=== PATIENT | male | born 1975 | race Caucasian/White ===

== ENCOUNTER → 2022-10-10 13:44 | Outpatient (BNVA) | payer OTHER, SELFPAY | PROVIDERS: PCP Family Medicine; Referring Provider Family Medicine; Visit Provider Physician Assistant | DX: M48.02 Spinal stenosis, cervical region (principal); M41.54 Other secondary scoliosis, thoracic region; M47.896 Other spondylosis, lumbar region | CPT/HCPCS: 72050; 72070; 72110 ==

== ENCOUNTER 2022-10-15 13:51 | Emergency (ER) | payer OTHER, SELFPAY ==
[2022-10-15 14:00] VITALS: BP 117/73; PULSE 106; RESP 18; TEMP 36.4; O2SAT 98
--- NOTE | 2022-10-15 14:05 | ECG_ITS ---
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 Measurements Intervals [place] Rate: 103 P: 136 OK: 142 QRS: 110 QRSD: 93 T: 59 QT: 304 QTc: 399 Interpretive Statements SINUS TACHYCARDIA ARM LEADS REVERSED [INVERTED P AND QRS IN I] No previous ECG available for comparison Electronically Signed On 10-15-2022 16:57:14 CDT by Khari Lau M.D. [email or web address] hospitalCemaphore Systemstrinity health system twin city medical centerYouku/[email or web address]/[id number]
== END 2022-10-15 16:05 | disposition left against medical advice (07) ==
LOC: ER 13:57
PROVIDERS: Emergency Provider Family Medicine; PCP Family Medicine
DX: Z53.21 Procedure and treatment not carried out due to patient leaving prior to being seen by health care provider (principal)
CPT/HCPCS: 93005

== ENCOUNTER → 2022-11-16 18:19 | Outpatient (BNVA) | payer OTHER, SELFPAY | PROVIDERS: PCP Family Medicine; Visit Provider Registered Nurse Neonatal Intensive Care | DX: R10.9 Unspecified abdominal pain (principal); R39.9 Unspecified symptoms and signs involving the genitourinary system | CPT/HCPCS: 81000; 87086 ==

== ENCOUNTER 2022-11-17 12:26 | Emergency (ER) | payer OTHER, SELFPAY ==
[2022-11-17 12:31] VITALS: BP 140/80; PULSE 117; RESP 18; TEMP 36.6; O2SAT 96; BMI 30.7
--- NOTE | 2022-11-17 12:44 | CTR_ITS ---
PROCEDURE INFORMATION: Exam: CT Abdomen And Pelvis With Contrast Exam date and time: 11/17/2022 1:34 PM Age: 47 years old Clinical indication: Other: Diarrhea; Abdominal pain; Periumbilical; Prior surgery; Surgery date: 6+ months; Surgery type: Hernia; Additional info: Periumbilical pain, diarrhea TECHNIQUE: Imaging protocol: Computed tomography of the abdomen and pelvis with contrast. Radiation optimization: All CT scans at this facility use at least one of these dose optimization techniques: automated exposure control; mA and/or kV adjustment per patient size (includes targeted exams where dose is matched to clinical indication); or iterative reconstruction. Contrast material: OMNI 350; Contrast volume: 100 ml; Contrast route: INTRAVENOUS (IV); REPORTING DATA: Count of CT and Cardiac NM exams in prior 12 months: This patient has received 0 known CTs and 0 known cardiac nuclear medicine studies in the 12 months prior to the current study. COMPARISON: CR XR lumbar spine min 4V [id number] 10/10/2022 1:44 PM RADIATION DOSE METRICS: Total DLP (mGy-cm): 749.73 FINDINGS: Liver: Scattered small cysts in the liver measuring up to 1.3 cm in the left lobe. Gallbladder and bile ducts: Contracted gallbladder. No ductal dilation. Pancreas: Normal. No ductal dilation. Spleen: Normal. No splenomegaly. Adrenal glands: Normal. No mass. Kidneys and ureters: Normal. No hydronephrosis. Stomach and bowel: Distended fluid-filled stomach. No obstruction. No mucosal thickening. There are also fluid-filled loops of small bowel and colon. Appendix: No evidence of appendicitis. Intraperitoneal space: Unremarkable. No free air. No significant fluid collection. Vasculature: Unremarkable. No abdominal aortic aneurysm. Lymph nodes: Unremarkable. No enlarged lymph nodes. Urinary bladder: Unremarkable as visualized. Reproductive: Unremarkable as visualized. Bones/joints: No acute fracture. Intervertebral disc spacers at L4-L5 and L5-S1. Soft tissues: Unremarkable. CT/CT abdomen pelvis w con* [id number] IMPRESSION: Distended fluid-filled stomach. There are also fluid-filled loops of small bowel and colon which while nonspecific likely reflects a gastroenteritis.
--- NOTE | 2022-11-17 12:46 | ED_ITS ---
HPI - Nausea/Vomiting/Diarrhea General: Chief complaint: Nausea/Vomiting/Diarrhea Stated complaint: diarhea, lower back pain, stomach pain Time Seen by Provider: 11/17/22 12:34 Source: patient Mode of arrival: ambulatory Limitations: no limitations History of Present Illness: 47-year-old male presents to the ER today for periumbilical abdominal pain and nausea and diarrhea for the last 4 days. Patient reports this started on . He reports the pain has continued. This is a sharp stabbing pain that doubles him over. Patient reports it is intermittent but lasts for minutes at a time. He reports he is also been burping up bile like material. He reports his stools are bile and water. Denies any bleeding. Denies any fever or chills. Patient reports decreased appetite due to the nausea. Patient reports the pain does not radiate anywhere at this time. Denies any known sick contacts. Patient reports has been trying to do Pedialyte to stay hydrated. No other symptoms at this time. Review of Systems General: Reports: 10 or more systems reviewed and unremarkable except in HPI and below PFSH ED PFSH: Medical History Afib Chronic back pain History of skin cancer Hypertension Low testosterone Overactive bladder Scoliosis Spinal stenosis Tachycardia Surgical History History of cardiac radiofrequency ablation History of spinal surgery L3-L4, L4-L5, L5-S1 fused together, 2008 S/P hernia surgery Family History Family/Other Cancer several members on both sides Mother Cancer malignant melanoma x2 Other Alzheimer disease CAD (coronary artery disease) Heart disease Hypertension Lung disease Stroke Denies family history of Clotting disorder Dementia Hyperlipidemia Psychiatric illness Chronic kidney disease (CKD) Anesthesia complication Bleeding disorder Social History Smoking and tobacco status: current every day smoker cigarettes Alcohol intake: current Alcohol intake frequency: holidays/special occasions only Substance/Drug Use: never Lives independently: Yes Marital status: Number of children: 3 Current occupational status: employed Current occupation: Insurance realty maintenence Special alejandra needs: No Agree to transfusion: Yes Physical Exam Const: COMMON NORMALS: no acute distress, average body habitus, patient oriented x3, no limitations, healthy appearing, alert and well nourished HENMT: COMMON NORMALS: normocephalic, atraumatic, external ears normal, Normal external nose present and moist oral mucous membranes HEAD & SCALP: normocephalic and atraumatic NOSE: Normal external nose present EXTERNAL EAR: Yes external ears normal Eye: COMMON NORMALS: conjunctivae normal CONJUNCTIVA: Yes conjunctivae normal Lymph: LYMPHATIC: no lymphadenopathy noted Resp: COMMON NORMALS: normal respiratory effort, No retractions and clear to auscultation bilaterally AUSCULTATION: clear to auscultation bilaterally Cardio: COMMON NORMALS: regular rhythm RATE: tachycardic RHYTHM: regular rhythm GI: OTHER: Has hyperactive bowel sounds in the right lower and left lower quadrants. He has periumbilical tenderness and right lower quadrant tenderness to palpation. Nondistended. Extremity: COMMON NORMALS: normal to inspection, full ROM and no pedal edema Neuro: COMMON NORMALS: patient oriented x3 SENSORIUM/ORIENTATION: Yes alert Psych: COMMON NORMALS: mental status grossly normal, Normal thought process present and cooperative THOUGHT PROCESS: Normal thought process present Skin: COMMON NORMALS: no rashes or lesions noted and no wounds GENERAL SKIN EXAM: no rashes or lesions noted Course ED course: Patient presents for 4 days of nausea and diarrhea along with periumbilical abdominal pain. Given history of symptoms, we will go ahead and get imaging along with labs done. I suspect possible viral gastroenteritis however we will rule out all surgical causes. Vital Signs: Vital signs: Vital Signs Temperature 97.8 F 11/17/22 12:31 Pulse Rate 76 11/17/22 14:04 Respiratory Rate 17 11/17/22 14:04 Blood Pressure 116/71 11/17/22 14:04 Pulse Oximetry 97 11/17/22 14:04 Oxygen Delivery Me thod Room Air 11/17/22 14:04 MDM - Nausea/Vomiting/Diarrhea Medical Decision Making Lab work is unremarkable other than a slightly bumped white count. CT abdomen pelvis indicates fluid-filled bowel loops and abdomen suggestive of gastroenteritis. This is classic for patient's symptoms. Discussed findings with patient. We will send him home with Jennifer and recommended a brat diet. Avoid antidiarrheal medications. Follow-up with PCP in 3 to 5 days if no improvement. Return to the ER with any new or worsening symptoms. Patient verbalized understanding and was in agreement with the treatment plan. Lab Data 11/17/22 12:44 11/17/22 12:44 Radiology Impressions Abdomen/Pelvis CT 11/17/22 12:44 IMPRESSION: Distended fluid-filled stomach. There are also fluid-filled loops of small bowel and colon which while nonspecific likely reflects a gastroenteritis. Laboratory Results WBC 10.5 10^3/uL (4.0-10.0) H 11/17/22 12:44 RBC 5.56 10^6/uL (4.1-5.3) H 11/17/22 12:44 Hgb 16.2 g/dL (11.7-16.6) 11/17/22 12:44 Hct 50.0 % (42.0-52.0) 11/17/22 12:44 MCV 89.9 fl (80-94) 11/17/22 12:44 MCH 29.1 pg (28.0-34.0) 11/17/22 12:44 MCHC 32.4 g/dL (30.0-36.0) 11/17/22 12:44 RDW 14.6 % (12.1-15.1) 11/17/22 12:44 Plt Count 325 10^3/cmm (130-400) 11/17/22 12:44 MPV 11.7 fL (7.4-10.4) H 11/17/22 12:44 Neut % (Auto) 75.7 % 11/17/22 12:44 Lymph % (Auto) 16.0 % 11/17/22 12:44 [place] % (Auto) 5.9 % 11/17/22 12:44 Eos % (Auto) 1.6 % 11/17/22 12:44 Baso % (Auto) 0.3 % 11/17/22 12:44 Neut # (Auto) 7.98 10^3/uL (1.8-7.7) H 11/17/22 12:44 Lymph # (Auto) 1.7 10^3/uL (0.8-4.8) 11/17/22 12:44 [place] # (Auto) 0.6 10^3/uL (0.2-0.9) 11/17/22 12:44 Eos # (Auto) 0.2 10^3/uL (0.0-0.8) 11/17/22 12:44 Baso # (Auto) 0.0 10^3/uL (0.0-0.1) 11/17/22 12:44 Nucleated RBC % (auto) 0 % 11/17/22 12:44 Nucleated RBCs # 0.0 /100WBC 11/17/22 12:44 Sodium 140 mmol/L (136-145) 11/17/22 12:44 Potassium 4.8 mmol/L (3.5-5.1) 11/17/22 12:44 Chloride 105 mmol/L (98-107) 11/17/22 12:44 Carbon Dioxide 26 mmol/L (22-29) 11/17/22 12:44 Anion Gap 13.8 (5-19) 11/17/22 12:44 BUN 19 mg/dL (6-20) 11/17/22 12:44 Creatinine 1.1 mg/dL (0.7-1.2) 11/17/22 12:44 GFR Calculation 72.4 mL/min (90-130) L 11/17/22 12:44 Glucose 104 mg/dL (65-115) 11/17/22 12:44 Calculated Osmolality 293 mOsm/kg (285-295) 11/17/22 12:44 Calcium 9.6 mg/dL (8.5-10.5) 11/17/22 12:44 Total Bilirubin 0.3 mg/dL (0.15-1.2) 11/17/22 12:44 AST 21 U/L (0-40) 11/17/22 12:44 ALT 15 U/L (0-41) 11/17/22 12:44 Alkaline Phosphatase 80 U/L (40-130) 11/17/22 12:44 Total Protein 8.0 g/dL (6.6-8.7) 11/17/22 12:44 Albumin 4.9 g/dL (3.5-5.2) 11/17/22 12:44 Globulin 3.1 g/dL (1.3-4.6) 11/17/22 12:44 Lipase 53 U/L (13-60) 11/17/22 12:44 Critical Care Time Critical Care Time: Critical Care Time: No Discharge Plan Discharge Patient Disposition: Home Clinical Impression: Gastroenteritis Condition: Stable Prescriptions: New ondansetron HCl 4 mg tablet 4 mg PO Q8H PRN (Reason: nausea and vomiting) 4 Days Qty: 12 0RF No Action testosterone cypionate 200 mg/mL oil 150 mg SUBCUT Q7D Qty: 10 3RF prednisone 20 mg tablet 20 mg PO DAILY Qty: 15 0RF Rx Instructions: 60mg x 3 days 40mg x 2 days 20mg x 2 days tamsulosin [Flomax] 0.4 mg capsule 0.4 mg PO DAILY Qty: 60 0RF anastrozole 1 mg tablet 1 mg PO .weekly Qty: 30 0RF Eliquis 5 mg tablet 5 mg PO BID Qty: 180 1RF chlorzoxazone 500 mg tablet 500 mg PO Q8H PRN (Reason: chronic back pain) Qty: 270 1RF metoprolol tartrate 25 mg tablet 25 mg PO BID Qty: 180 1RF pantoprazole 40 mg tablet,delayed release (DR/EC) 40 mg PO DAILY Qty: 90 1RF oxycodone 10 mg tablet 10 mg PO Q8H PRN (Reason: pain) 30 Days Qty: 90 0RF Discharge Orders: Discharge ED (Routine); Ordered 11/17/22 Ordered By: Mari Barnes Referrals: Michi Morrow MD [Primary Care Provider] - Discharge Diet: Advance as tolerated Discharge Activity: Resume usual activity Patient Instructions: Opioid Safety, Pain Management Activity Restrictions/Additional Instructions: Take Zofran as needed for nausea. Avoid taking antidiarrheal medication. Continue to push fluids and advance solid diet as tolerated. Follow-up with PCP in 3 to 5 days if no improvement. Return to the ER if new or worsening symptoms. Coding Level of Care Code ED Boiler Room Operator for Diana Alvarez
[2022-11-17 13:00] LABS: Basophils % 0.3 %; Eosinophils # 0.2 10^3/uL (0.0-0.8); Eosinophils % 1.6 %; Hemoglobin 16.2 g/dL (11.7-16.6); Lymphocytes # 1.7 10^3/uL (0.8-4.8); Mean Corpuscular HGB Conc 32.4 g/dL (30.0-36.0); Mean Corpuscular Hemoglobin 29.1 pg (28.0-34.0); Mean Corpuscular Volume 89.9 fl (80-94); Mean Platelet Volume 11.7 fL (7.4-10.4); Monocytes # 0.6 10^3/uL (0.2-0.9); Monocytes % 5.9 %; Neutrophils # 7.98 10^3/uL (1.8-7.7); Neutrophils % 75.7 %; Nucleated Red Blood Cells % 0 %; Platelet Count 325 10^3/cmm (130-400); Red Blood Count 5.56 10^6/uL (4.1-5.3); Red Cell Distribution Width 14.6 % (12.1-15.1); White Blood Count 10.5 10^3/uL (4.0-10.0)
[2022-11-17] MEDS: sodium chloride 0.9% 1,000 ML 999 ML IV (13:02)
[2022-11-17] MEDS: ondansetron 2 mg/ML SDV 2 mL 4 MG IVP (13:03)
[2022-11-17 13:16] LABS: Alanine Aminotransferase 15 U/L (0-41); Albumin Level 4.9 g/dL (3.5-5.2); Alkaline Phosphatase 80 U/L (40-130); Anion Gap 13.8 (5-19); Aspartate Amino Transferase 21 U/L (0-40); Blood Urea Nitrogen 19 mg/dL (6-20); Calcium 9.6 mg/dL (8.5-10.5); Carbon Dioxide 26 mmol/L (22-29); Chloride 105 mmol/L (98-107); Globulin 3.1 g/dL (1.3-4.6); Glomerular Filtration Rate 72.4 mL/min (90-130); Glucose 104 mg/dL (65-115); Lipase 53 U/L (13-60); Osmolality Calculated 293 mOsm/kg (285-295); Potassium 4.8 mmol/L (3.5-5.1); Sodium 140 mmol/L (136-145); Total Bilirubin 0.3 mg/dL (0.15-1.2)
[2022-11-17] MEDS: iohexol 350 mg/mL 500 mL Btl (per mL) IV (13:39)
[2022-11-17 14:04] VITALS: BP 116/71; PULSE 76; RESP 17; O2SAT 97
[2022-11-17 14:15] VITALS: BP 116/71
== END 2022-11-17 14:16 | disposition home or self-care (01) ==
PROVIDERS: Emergency Provider Physician Assistant; PCP Family Medicine
DX: K52.9 Noninfective gastroenteritis and colitis, unspecified (principal)
CPT/HCPCS: 36415; 74177; 80053; 83690; 85025; 96361; 96374; 99284; J2405; J7030; Q9967

== ENCOUNTER → 2022-12-06 11:33 | Outpatient (BNVA) | payer OTHER, SELFPAY | PROVIDERS: PCP Family Medicine; Visit Provider Specialist | DX: R20.2 Paresthesia of skin (principal); M48.00 Spinal stenosis, site unspecified | CPT/HCPCS: 82550; 85651; 86160; 86162; 86235; 86255; 86376; 86431 ==

== ENCOUNTER 2022-12-26 07:11 | Outpatient (CLI) | payer OTHER, SELFPAY ==
--- NOTE | 2022-12-26 07:15 | MR_ITS ---
WS: [id number] MRI CERVICAL SPINE NONCONTRAST TECHNIQUE: Sagittal T1, T2 and STIR imaging. Axial T2, gradient, and fiesta imaging. CLINICAL INFORMATION: Pain COMPARISON: None. FINDINGS: Straightening of the normal cervical lordosis. Cord signal is normal. C2-C3: Mild facet arthropathy. Spinal canal and foramen are patent. C3-C4: Mild disc bulging with mild central canal stenosis. Moderate LEFT greater than RIGHT bony fora ml narrowing. Mild facet arthropathy. C4-C5: Mild disc bulging with slight effacement of ventral thecal sac. Slight indentation RIGHT ventr al cervical cord. Mild central canal stenosis. Moderate LEFT bony foraminal narrowing. C5-C6: Mild disc bulging with mild facet arthropathy. Mild RIGHT and no significant LEFT foraminal na rrowing. Mild facet arthropathy. Spinal canal is patent. C6-C7: Mild disc bulging with slight effacement of the ventral thecal sac. Moderate RIGHT and mild LE FT bony foraminal narrowing. C7-T1: Normal. Visualized brain stem structures: Normal. Prevertebral soft tissues: Normal. MR/MR cervical spin wo con* [id number] IMPRESSION: 1. Straightening of the normal cervical lordosis. Cord signal is normal. 2. Mild central canal stenosis C3-C4 C4-C5 and C5-C6. 3. Moderate bilateral bony foraminal narrowing C3-C4, LEFT C4-C5, and RIGHT C6 -C7. 4. Moderate facet arthropathy C5-C6.
== END 2022-12-26 07:12 | disposition home or self-care (01) ==
PROVIDERS: PCP Family Medicine; Visit Provider Physician Assistant
DX: M48.02 Spinal stenosis, cervical region (principal); G89.29 Other chronic pain; M47.812 Spondylosis without myelopathy or radiculopathy, cervical region
CPT/HCPCS: 72141

== ENCOUNTER 2023-08-12 12:40 | Emergency (ER) | payer SELFPAY ==
--- NOTE | 2023-08-12 12:41 | XRR_ITS ---
PROCEDURE INFORMATION: Exam: XR Chest Exam date and time: 08/12/2023 12:54 PM Age: 48 years old Clinical indication: Pain; Angina pectoris; Prior surgery; Surgery date: 6+ months; Surgery type: Cardiac oblation; Additional info: Cp TECHNIQUE: Imaging protocol: Radiologic exam of the chest. Views: 1 view. COMPARISON: MR cervical spin wo con* [id number] 12/26/2022 7:22 AM FINDINGS: Lungs: Unremarkable. No consolidation. Pleural spaces: Unremarkable. No pleural effusion. No pneumothorax. Heart/Mediastinum: Unremarkable. No cardiomegaly. Bones/joints: Unremarkable. XR/XR chest 1V portable [id number] IMPRESSION: No acute findings.
--- NOTE | 2023-08-12 12:42 | ECG_ITS ---
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 Measurements Intervals [place] Rate: 142 P: 0 VA: 0 QRS: 78 QRSD: 93 T: 37 QT: 264 QTc: 406 Interpretive Statements ATRIAL FIBRILLATION WITH RAPID VENTRICULAR RESPONSE ABNORMAL RHYTHM ECG Compared to ECG 10/15/2022 14:03:02 Sinus tachycardia no longer present Electronically Signed On 08-12-2023 18:28:14 HULL DRAFTER by Rebecca Guzman M.D. [id number]
[2023-08-12 12:50] VITALS: BP 105/67; PULSE 107; RESP 17; TEMP 36.6; O2SAT 100; BMI 29.8
[2023-08-12 13:24] VITALS: BP 102/65; PULSE 112; O2SAT 99
--- NOTE | 2023-08-12 13:25 | ED_ITS ---
HPI - Chest Pain 2 General: Chief Complaint: Chest Pain Stated Complaint: chest pain Time Seen by Provider: 08/12/23 13:15 Source: patient Mode of arrival: ambulatory Limitations: no limitations History of Present Illness: 48-year-old male has a history of A-fib states that over the last 2 days he has had increasing heart rate he states has been having palpitations been having some chest pain he states this is typical when he goes into A-fib. He is on Eliquis metoprolol he states has not missed any of his meds he had some vomiting 2 days ago Associated symptoms: Reports palpitations; Deny abdominal pain, dyspnea, fever(s), nausea or vomiting Review of Systems 2 Const: Denies: fever(s), chills, body aches or change in appetite ENMT: Denies: throat pain or dental pain Card: Reports: chest pain and palpitations Resp: Denies: dyspnea GI: Denies: abdominal pain, nausea, vomiting or diarrhea Musc: Denies: neck pain or back pain Skin/Breast: Denies: rash Neuro: Denies: headache(s) PFSH ED 2 PFSH: Medical History Chronic back pain History of skin cancer Hypertension Low testosterone Scoliosis Spinal stenosis Afib Tachycardia Overactive bladder Surgical History S/P hernia surgery History of spinal surgery L3-L4, L4-L5, L5-S1 fused together, 2008 History of cardiac radiofrequency ablation Family History Family/Other Cancer several members on both sides Mother Cancer malignant melanoma x2 Other Alzheimer disease CAD (coronary artery disease) Heart disease Hypertension Lung disease Stroke Denies family history of Clotting disorder Dementia Hyperlipidemia Psychiatric illness Chronic kidney disease (CKD) Anesthesia complication Bleeding disorder Social History Smoking and tobacco/nicotine status: current some day tobacco/nicotine user Alcohol intake: current Alcohol intake frequency: holidays/special occasions only Substance/Drug Use: never Lives independently: Yes Marital status: Number of children: 3 Current occupational status: employed Current occupation: Insurance realty maintenence Special alejandra needs: No Agree to transfusion: Yes Physical Exam 2 Const: COMMON NORMALS: patient oriented x3 HENMT: COMMON NORMALS: normocephalic and atraumatic HEAD & SCALP: n ormocephalic and atraumatic Neck/C-Spine: COMMON NORMALS: full ROM and supple Chest: COMMONS NORMALS: normal inspection of the chest Resp: COMMON NORMALS: normal respiratory effort, No retractions, No use of accessory muscles and clear to auscultation bilaterally AUSCULTATION: clear to auscultation bilaterally Cardio: COMMON NORMALS: No murmurs present (Cardio) RATE: tachycardic R HYTHM: abnormal rhythm irregularly irregular Extremity: COMMON NORMALS: normal to inspection and full ROM Neuro: COMMON NORMALS: patient oriented x3, moves all extremities and no focal motor deficits Psych: COMMON NORMALS: mental status grossly normal, Normal thought process present and cooperative THOUGHT PROCESS: Normal thought process present Skin: COMMON NORMALS: no rashes or lesions noted and no wounds GENERAL SKIN EXAM: no rashes or lesions noted Course 2 Vital Signs: Vital signs: Vital Signs Temperature 97.8 F 08/12/23 12:50 Pulse Rate 95 08/12/23 15:12 Respiratory Rate 17 08/12/23 12:50 Blood Pressure 102/65 08/12/23 13:33 Pulse Oximetry 93 08/12/23 15:12 Oxygen Delivery Me thod Room Air 08/12/23 13:33 MDM - Chest Pain Medical Decision Making Patient was here with A-fib his heart rates much improved after Cardizem he has been 82 he is he feels improved troponins negative no signs of pulmonary embolism or acute coronary syndrome. He is to follow-up with his PCP we will get him cardiology follow-up as well he is return if he is worsening he is to continue his meds at home he understands agrees to plan Medical Records I reviewed the patient's medical records. Lab Data I reviewed the patient's lab results. 08/12/23 13:40 08/12/23 13:40 Radiology Impressions Chest X-Ray 08/12/23 12:41 IMPRESSION: No acute findings. Laboratory Results WBC 7.15 10^3/uL (3.29-11.43) 08/12/23 13:40 RBC 4.22 10^6/uL (3.85-5.65) 08/12/23 13:40 Hgb 12.70 g/dL (11.27-16.99) 08/12/23 13:40 Hct 38.2 % (37-53) 08/12/23 13:40 MCV 90.5 fl (82-101) 08/12/23 13:40 MCH 30.1 pg (27-33) 08/12/23 13:40 MCHC 33.2 g/dL (30-55) 08/12/23 13:40 RDW 13.9 % (12.1-15.1) 08/12/23 13:40 Plt Count 243 10^3/cmm (157-399) 08/12/23 13:40 MPV 11.7 fL (7.4-10.4) H 08/12/23 13:40 Neut % (Auto) 53.4 % 08/12/23 13:40 Lymph % (Auto) 36.6 % 08/12/23 13:40 [place] % (Auto) 8.0 % 08/12/23 13:40 Eos % (Auto) 1.1 % 08/12/23 13:40 Baso % (Auto) 0.6 % 08/12/23 13:40 Neut # (Auto) 3.82 10^3/uL (1.8-7.7) 08/12/23 13:40 Lymph # (Auto) 2.6 10^3/uL (0.8-4.8) 08/12/23 13:40 [place] # (Auto) 0.6 10^3/uL (0.2-0.9) 08/12/23 13:40 Eos # (Auto) 0.1 10^3/uL (0.0-0.8) 08/12/23 13:40 Baso # (Auto) 0.0 10^3/uL (0.0-0.1) 08/12/23 13:40 Nucleated RBC % (auto) 0 % 08/12/23 13:40 Nucleated RBCs # 0.0 /100WBC 08/12/23 13:40 PT 12.80 SECONDS (12.1-14.9) 08/12/23 13:40 INR 0.94 (0.8-1.2) 08/12/23 13:40 Sodium 139 mmol/L (136-145) 08/12/23 13:40 Potassium 4.5 mmol/L (3.5-5.1) 08/12/23 13:40 Chloride 103 mmol/L (98-107) 08/12/23 13:40 Carbon Dioxide 25 mmol/L (22-29) 08/12/23 13:40 Anion Gap 15.5 (5-19) 08/12/23 13:40 BUN 21 mg/dL (6-20) H 08/12/23 13:40 Creatinine 0.9 mg/dL (0.7-1.2) 08/12/23 13:40 GFR Calculation 90.8 mL/min (90-130) 08/12/23 13:40 Glucose 88 mg/dL (65-115) 08/12/23 13:40 Calculated Osmolality 290 mOsm/kg (285-295) 08/12/23 13:40 Calcium 8.8 mg/dL (8.5-10.5) 08/12/23 13:40 Total Bilirubin 0.3 mg/dL (0.15-1.2) 08/12/23 13:40 AST 14 U/L (0-40) 08/12/23 13:40 ALT 14 U/L (0-41) 08/12/23 13:40 Alkaline Phosphatase 73 U/L (40-130) 08/12/23 13:40 Troponin T Baseline < 6 ng/L (0-15) 08/12/23 13:40 Total Protein 6.2 g/dL (6.6-8.7) L 08/12/23 13:40 Albumin 4.2 g/dL (3.5-5.2) 08/12/23 13:40 Globulin 2.0 g/dL (1.3-4.6) 08/12/23 13:40 Lipase 31 U/L (13-60) 08/12/23 13:40 All radiology interpretation(s) finalized by discharge EKG Data EKG 1: I personally reviewed and interpreted this EKG as follows: EKG interpretation date: 08/12/23 EKG interpretation time: 12:43 Interpretation: afib with rvr hr [address] elevation qrs 92 qtc 346 Discharge Plan Discharge Patient Disposition: Home Clinical Impression: Atrial fibrillation with RVR Condition: Stable Prescriptions: No Action testosterone cypionate 200 mg/mL oil 150 mg SUBCUT Q7D Qty: 10 3RF chlorzoxazone 500 mg tablet 500 mg PO Q8H PRN (Reason: chronic back pain) Qty: 270 1RF pantoprazole 40 mg tablet,delayed release (DR/EC) 40 mg PO DAILY Qty: 90 1RF metoprolol tartrate 25 mg tablet 25 mg PO BID Qty: 180 1RF Eliquis 5 mg tablet 5 mg PO BID Qty: 180 1RF ciprofloxacin HCl 500 mg tablet 500 mg PO BID oxycodone 5 mg tablet 5 - 10 mg PO Q4H PRN (Reason: Pain) anastrozole 1 mg tablet 1 mg PO Q7D tadalafil 5 mg tablet 5 mg PO DAILY magnesium 250 mg Tablet 250 mg PO DAILY Vitamin D3 25 mcg (1,000 unit) Capsule 25 mcg PO DAILY alfuzosin 10 mg tablet extended release 24 hr 10 mg PO DAILY Discharge Orders: Discharge ED (Routine); Ordered 08/12/23 Ordered By: Israel Cordova Referrals: Michi Morrow MD [Primary Care Provider] - 4-7 days Discharge Diet: Advance as tolerated Discharge Activity: Resume usual activity Patient Instructions: A-fib (Atrial Fibrillation) (ED) Coding Level of Care Code ED Investment Strategist for Diana Alvarez
[2023-08-12 13:33] VITALS: BP 102/65; PULSE 112; O2SAT 99
[2023-08-12] MEDS: dilTIAZem 5 mg/mL SDV 5 mL 10 MG IVP (13:35)
[2023-08-12] MEDS: sodium chloride 0.9% 1,000 ML 999 ML IV (13:36)
[2023-08-12 13:54] LABS: Basophils % 0.6 %; Eosinophils # 0.1 10^3/uL (0.0-0.8); Eosinophils % 1.1 %; Hematocrit 38.2 % (37-53); Lymphocytes # 2.6 10^3/uL (0.8-4.8); Lymphocytes % 36.6 %; Mean Corpuscular HGB Conc 33.2 g/dL (30-55); Mean Corpuscular Hemoglobin 30.1 pg (27-33); Mean Corpuscular Volume 90.5 fl (82-101); Mean Platelet Volume 11.7 fL (7.4-10.4); Monocytes # 0.6 10^3/uL (0.2-0.9); Neutrophils # 3.82 10^3/uL (1.8-7.7); Neutrophils % 53.4 %; Nucleated Red Blood Cells % 0 %; Platelet Count 243 10^3/cmm (157-399); Red Blood Count 4.22 10^6/uL (3.85-5.65); Red Cell Distribution Width 13.9 % (12.1-15.1); White Blood Count 7.15 10^3/uL (3.29-11.43)
[2023-08-12 14:03] LABS: INR 0.94 (0.8-1.2)
[2023-08-12 14:09] LABS: Troponin(5th) Baseline < 6 ng/L (0-15)
[2023-08-12 14:14] LABS: Alanine Aminotransferase 14 U/L (0-41); Albumin Level 4.2 g/dL (3.5-5.2); Alkaline Phosphatase 73 U/L (40-130); Anion Gap 15.5 (5-19); Aspartate Amino Transferase 14 U/L (0-40); Blood Urea Nitrogen 21 mg/dL (6-20); Calcium 8.8 mg/dL (8.5-10.5); Carbon Dioxide 25 mmol/L (22-29); Chloride 103 mmol/L (98-107); Creatinine Clr Calc Pharmacy 125.4436; Glomerular Filtration Rate 90.8 mL/min (90-130); Glucose 88 mg/dL (65-115); Lipase 31 U/L (13-60); Osmolality Calculated 290 mOsm/kg (285-295); Potassium 4.5 mmol/L (3.5-5.1); Sodium 139 mmol/L (136-145); Total Bilirubin 0.3 mg/dL (0.15-1.2); Total Protein 6.2 g/dL (6.6-8.7)
--- NOTE | 2023-08-12 14:42 | ECG_ITS ---
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 Measurements Intervals [place] Rate: 84 P: 0 [place]: 0 QRS: 64 QRSD: 90 T: 38 QT: 343 QTc: 407 Interpretive Statements ATRIAL FIBRILLATION ABNORMAL RHYTHM ECG Compared to ECG 08/12/2023 12:43:28 No significant changes Electronically Signed On 08-12-2023 18:37:12 ELECTRON GUN INSPECTOR by Rebecca Guzman M.D. [email or web address] [email or web address] Alleyveterans affairs ann arbor healthcare systemInnovEco/store/[id number]
[2023-08-12] MEDS: metoprolol tartrate 25 mg Tablet PO (15:02)
[2023-08-12 15:12] VITALS: PULSE 95; O2SAT 93
--- NOTE | 2023-08-12 17:16 | DCPLANNER ---
Message sent to cardiology for follow up AFIB
== END 2023-08-12 15:14 | disposition home or self-care (01) ==
PROVIDERS: Emergency Provider Emergency Medicine; PCP Family Medicine
DX: I48.20 Chronic atrial fibrillation, unspecified (principal); Z79.01 Long term (current) use of anticoagulants; I10 Essential (primary) hypertension; Z72.0 Tobacco use
CPT/HCPCS: 36415; 71045; 80053; 83690; 84484; 85025; 85610; 93005; 96361; 96374; 99285; J3490; J7030

== ENCOUNTER → 2023-11-28 08:22 | Outpatient (BNVA) | payer OTHER, SELFPAY | PROVIDERS: PCP Family Medicine; Visit Provider Family Medicine | DX: I10 Essential (primary) hypertension (principal); R79.89 Other specified abnormal findings of blood chemistry | CPT/HCPCS: 80053; 82672; 84403; 85025 ==